=== PATIENT | male | born 1945 | race Caucasian/White ===

== ENCOUNTER 2024-01-01 12:06 | Emergency (ER) | payer MEDICARE ==
[~2024-01-01] VITALS: Ht 177.8 cm; Wt 74.8 kg
[2024-01-01] MEDS ORDERED: POTASSIUM CHLO20 ME4 PO (12:43)
[2024-01-01] MEDS ORDERED: OMEPRAZOLE MAGN20 MG PO (12:43)
[2024-01-01] MEDS ORDERED: ATORVASTATIN CA20 M1 PO (12:44)
[2024-01-01] MEDS ORDERED: TAMSULOSIN HCL0.4 MG PO (12:44)
[2024-01-01] MEDS ORDERED: ZESTORETIC 10-1 EACH PO (12:44)
[2024-01-01] MEDS ORDERED: Tdap Vaccine 0.5 ML SYR (Adult Vaccine) IM ONE (15:35)
[2024-01-01] MEDS ORDERED: Lidocaine Hydrochloride 5 ML AMP SC ONE (15:35)
[2024-01-01] MEDS ORDERED: CEPHALEXIN500 M1 PO (16:02)
== END 2024-01-01 16:02 | disposition home or self-care (01) ==
LOC: ED 12:06
DX: S61.012A Laceration without foreign body of left thumb without damage to nail, initial encounter (principal); I10 Essential (primary) hypertension; W26.0XXA Contact with knife, initial encounter; Y93.89 Activity, other specified; Y92.89 Other specified places as the place of occurrence of the external cause; Y99.8 Other external cause status